=== PATIENT | male | born 1980 | race Caucasian/White ===

== ENCOUNTER 2016-11-20 14:09 | Emergency (ER) | payer MEDICAID ==
[2016-11-20 14:19] VITALS: RESP 18
--- NOTE | 2016-11-20 16:28 | EDPHY ---
H & P Time Seen by Provider: 11/20/16 16:20 HPI/ROS: CHIEF COMPLAINT: Left foot pain HISTORY OF PRESENT ILLNESS: 36-year-old male complaining of acute left 5th metatarsal pain which occurred on October 31 when he was jumping on the rocks and felt immediate pain. He has been walking on the area for the past 3 weeks. No paresthesia. No sensory or motor deficit. PHYSICAL EXAM (Prior to examination, patient consented to physical exam, hands were washed and my usual and customary physical exam procedures followed) 1) GENERAL: Well-developed, well-nourished, alert and oriented. Appears to be in no acute distress. 2) HEAD: Normocephalic 3) HEENT: Pupils equal, round, reactive to light bilaterally. 4) LUNGS: Breathing comfortably. 5) MUSCULOSKELETAL: Compartments are soft. Tender to palpation 5th metatarsal. No deformity. Intact skin. No signs of infection. proximal tibia and fibula nontender .5th MT nontender negative Guy test, compartments soft 6) SKIN: no signs of infection 7) VASCULAR: DP,PT pulses and cap refill present and brisk DIFFERENTIAL DIAGNOSIS: in no particular order including but not limited to fracture, sprain, compartment syndrome Procedure: Splint A postop shoe splint was applied by ER photographic technician. After application of the splint I returned and re-examined the patient. The splint was adequately immobilizing the joint and distal to the splint the patient's circulation and sensation were intact. Patient shows no signs of compartment syndrome. Was given orthopedic precautions. Smoking Status: Current every day smoker Constitutional: Initial Vital Signs Heart Rate 19 L 11/20/16 14:10 Respiratory Rate 18 11/20/16 14:10 Blood Pressure 106/75 11/20/16 14:10 O2 Sat (%) 96 11/20/16 14:10 O2 Delivery Mode Room Air Allergies/Adverse Reactions: No Known Allergies Allergy (Unverified 11/20/16 14:19) Home Medications: Medication Instructions Recorded NK [No Known Home Meds] 11/20/16 MDM/Departure - MDM Imaging Results: Imaging Impressions Foot X-Ray 11/20/16 14:20 Impression: Incomplete nondisplaced distal fifth metatarsal fracture (query stress fracture). Images reviewed myself Imaging: I viewed and interpreted images myself ED Course/Re-evaluation: Discussed with the patient that due to to his delay in seeking medical attention , has been ambulating on his fractured 5th metatarsal for 3 weeks, this may result in long-term disability. He has been placed in a postop shoe and recommend follow up with Orthopedics. Usual and customary orthopedic precautions and instructions provided - Depart Disposition: Home, Routine, Self-Care Clinical Impression: Fracture of 5th metatarsal Qualifiers: Encounter type: initial encounter Fracture type: closed Fracture alignment: nondisplaced Laterality: left Qualified Code(s): S92.355A - Nondisplaced fracture of fifth metatarsal bone, left foot, initial encounter for closed fracture Condition: Good Instructions: Foot Fracture in Adults (ED) Additional Instructions: Return to the ER immediately if you experience discoloration, have worsening pain, numbness, tingling, or any other symptoms that concern you. If you received x-rays in the emergency department today, be advised, that ligamentous , tendon, muscular, and other non-bony injury cannot be fully ruled out. Try to keep your affected extremity elevated above the level of your chest, and keep cold packs on the affected area, for the next 48 hours. Referrals: Nilesh Sarmiento MD [Medical Doctor] - 2-3 days, call for appt.
[2016-11-20 16:36] VITALS: BP 117/77; PULSE 71; O2SAT 92
== END 2016-11-20 16:36 | disposition home or self-care (01) ==
DX: S92.355A Nondisplaced fracture of fifth metatarsal bone, left foot, initial encounter for closed fracture (principal); F17.200 Nicotine dependence, unspecified, uncomplicated; X58.XXXA Exposure to other specified factors, initial encounter; Y93.39 Activity, other involving climbing, rappelling and jumping off
CPT/HCPCS: L3260